=== PATIENT | male | born 1970 | race African-American/Black ===

== ENCOUNTER 2018-07-02 22:13 | Emergency (ER) | payer OTHER ==
[~2018-07-02] VITALS: Ht 180.3 cm; Wt 89.9 kg
[~2018-07-02 22:13] MED LIST: NAPROXEN500 MG PO; PERCOCET 5/31 TABLET PO
[2018-07-02] MEDS ORDERED: CLEOCIN300 MG PO (23:23)
[2018-07-02 23:42] VITALS: BP 147/76
== END 2018-07-02 23:42 | disposition home or self-care (01) ==
LOC: EME 22:13
DX: J34.89 Other specified disorders of nose and nasal sinuses (principal); R09.81 Nasal congestion; R21 Rash and other nonspecific skin eruption; F17.200 Nicotine dependence, unspecified, uncomplicated; Z88.0 Allergy status to penicillin; Z88.5 Allergy status to narcotic agent
CPT/HCPCS: 99281; 99283